=== PATIENT | male | born 1960 | race Caucasian/White ===

== ENCOUNTER → 2018-01-19 | Day surgery (SDC) | payer OTHER ==
[~2018-01-19] MED LIST: B COMPLEX # 11 EACH PO; EDLUAR10 MG PO; FAMCYCLOVIR 50500 M1 PO; FISH OIL 1,001000 M2 PO; FLEXERIL PO; IBUPROFEN 200200 M1 PO; NORCO 5-325 TA1 EACH PO; NORCO 7.5-3251 EACH PO; PROBIOTIC1 EAC1 PO; TOPROL XL25 MG PO; UNICOMPLEX M TA1 TA1 PO
[2018-01-19 07:28] LABS: HEMATOCRIT 43.4 % (42.0-52.0); HEMOGLOBIN 14.8 gm/dL (14.0-18.0); MCH 31.6 pg (26.0-34.0); MCHC 34.2 g/dL (28.0-37.0); MCV 92.6 fL (80.0-100.0); MPV 9.6 fl. (7.2-11.1); RBC 4.69 mil/uL (4.50-6.00); RDW-CV 13.1 % (10.5-14.5)
[2018-01-19 07:33] LABS: CALCIUM 8.7 mg/dL (8.5-10.1); POTASSIUM 3.9 mmol/L (3.5-5.1)
[2018-01-19 07:38] LABS: ALBUMIN 3.7 g/dL (3.4-5.0); TOTAL BILIRUBIN 0.8 mg/dL (<0.1-1.0); TOTAL PROTEIN 7.1 g/dL (6.4-8.2)
--- NOTE | 2018-01-30 07:12 | OP ---
[address] [address] OPERATIVE REPORT Name: ISAIAH ANTONIO Room: [facility]#: [id number] Admission: 01/19/18 Attend Phys: David Colby DO Discharge: Date of : 56 Report #: [id number] THIS REPORT FOR: //name// CC: David WOODS Physician staff DICTATED BY: Trevor Temple DO DATE OF SERVICE: 01/19/2018 PREOPERATIVE DIAGNOSIS: Right shoulder pain with 270-degree labral tear consisting of superior, posterior and inferior components noted on MR arthrogram. POSTOPERATIVE DIAGNOSES: Right shoulder significant labral tear, roughly from the 12 o'clock position superiorly, down to the 6 o'clock position inferiorly along the posterior aspect consisting of a superior, posterior, and small inferior labral tear, biceps tendonitis and fraying, partial subscapularis tendon tear. PROCEDURE: Right shoulder arthroscopy with extensive labral repair, biceps tenotomy, and limited synovium debridement. SURGEON: David Colby DO PERFORMANCE MANAGER: Trevor Temple DO ANESTHESIA: General with a right upper extremity interscalene block. ESTIMATED BLOOD LOSS: 5 mL. ANTIBIOTICS: 2 grams Ancef IV preoperatively. COMPLICATIONS: None. SPECIMENS: None. DRAINS: None. DISPOSITION: Stable to PACU and will be discharged to home from PACU. INDICATIONS FOR PROCEDURE: The patient is a pleasant 57-year-old male was seen in orthopedic clinic with complaints of right shoulder pain. He was found to have findings consistent with possible labral tear, was sent for MRI of his right shoulder that displayed significant evidence of roughly 270-degree labral [place] [id number] OPERATIVE REPORT Name: ISAIAH ANTONIO Room: [facility]#: [id number] Admission: 01/19/18 Attend Phys: David Colby DO Discharge: Date of : 56 Report #: [id number] tear consisting of the superior, posterior, and inferior margins of the labrum. Had suspicions of partial thickness rotator cuff tear. Recommendation was made for right shoulder arthroscopy with likely labral tear. Risks, benefits, complications, indications, and alternative treatments were discussed and the patient wised to proceed with surgery today. DESCRIPTION OF PROCEDURE: The patient was seen in preoperative holding area. Correct operative site, right shoulder was initialed. The patient was taken back to the operating suite, placed in supine position on the T-max operating table, given benefit of general anesthetic. He was then placed in the standard beach chair position with a well-padded facemask placed in normal fashion. All bony prominences were well padded. Right shoulder was then prepped and draped in typical fashion. Surgery began at this time after identifying correct patient, correct procedure, correct operative site, preoperative antibiotics and correct performing surgeon. Next, standard posterior lateral viewing portal was established. We made this slightly more lateral and inferior. There is normal posterolateral position in preparation for likely posterior labral anchors. Skin was incised with 11-blade scalpel, roughly 1 cm vertical type incision. A blunt camera trocar was introduced into the glenohumeral joint followed by the arthroscopic camera. Thorough diagnostic shoulder arthroscopy was performed at this time identifying the previously mentioned findings noted in the postoperative diagnoses. There was extensive fraying of the anterior labrum, as well as the biceps tendon, as well as the superior aspect of the subscapularis tendon. There was no significant rotator cuff tendon tear. There was some undersurface fraying, which was debrided. There was significant labral tear noted extending from the superior around to the posterior aspect and into the inferior aspect to a lesser extent inferior. Next, a standard anterior working portal was established under spinal needle technique. We debrided the anterior labrum with 4.0 arthroscopic shaver. Performed our biceps tenotomy with radiofrequency ablator. Debrided the undersurface of her rotator cuff, as well as the posterior labral aspect. Next, we placed our switching sticks and switched our camera to anterior viewing portal in preparation for work working posteriorly on her labrum. Next, we inserted our normal cannula into the posterolateral portal. We debrided our posterior labrum and prepared for our labral anchors. We then sequentially placed 3 knotless 3.0 Arthrex SutureTak labral anchors starting with the most inferior and ending roughly at her 12 o'clock position in the superior labrum with one anchor placed roughly in the middle of these two anchors. We drilled and placed our anchors in normal fashion. We were able to pass our abraded shuttling wire through our labrum in the normal fashion with our corkscrew suture passer and we were able to shuttle our shuttling suture for the anchors and passed our tensioning suture. The remnants of the sutures were cut at the base of the labrum. This was then repeated all from the posterior portal for our middle anchor placed roughly at 10 o'clock position. Then, we made another accessory portal just off the anterolateral aspect of the anterolateral acromial [address] [address] OPERATIVE REPORT Name: ISAIAH ANTONIO Room: [facility]#: [id number] Admission: 01/19/18 Attend Phys: David Colby DO Discharge: Date of : 56 Report #: [id number] edge to pass our most superior anchor. This was prepared in the normal fashion, drilled, and an anchor was placed. Sutures were shuttled through the labrum in a normal fashion and tensioning sutures were then pulled tight. All excess sutures were cut in normal fashion. Final arthroscopic pictures were taken showing a great repair, was well tensioned appropriately placed superior, posterior, and posterior inferior knotless SutureTak labral anchors. Shoulder was thoroughly irrigated. Arthroscopic fluid was exsanguinated. Portal incisions were closed in a simple interrupted fashion with 4-0 nylon suture. Standard dressings were applied consisting of Xeroform, 4 x 4's, ABDs, and Medipore tape. The patient was placed in a sling. He was weaned from general anesthetic, transferred in stable condition to the PACU. All sponge and needle counts were correct times 2. <ELECTRONICALLY SIGNED> By: Darius Byrd DO 01/30/18 [id number] Colby DO /nt
== END | disposition home or self-care (01) ==
LOC: M.SUR 06:57
PROVIDERS: Orthopaedic Surgery
DX: S43.491A Other sprain of right shoulder joint, initial encounter (principal); S46.811A Strain of other muscles, fascia and tendons at shoulder and upper arm level, right arm, initial encounter; M75.21 Bicipital tendinitis, right shoulder; I10 Essential (primary) hypertension; G47.33 Obstructive sleep apnea (adult) (pediatric); X58.XXXA Exposure to other specified factors, initial encounter; Y93.89 Activity, other specified; Y92.89 Other specified places as the place of occurrence of the external cause; Y99.8 Other external cause status; Z79.899 Other long term (current) drug therapy; Z98.890 Other specified postprocedural states; Z79.891 Long term (current) use of opiate analgesic